=== PATIENT | female | born 1950 | race African-American/Black ===

== ENCOUNTER 2018-06-17 19:33 | Inpatient (IN) | payer OTHER, MEDICAID ==
[~2018-06-17] VITALS: Ht 165.1 cm; Wt 113.4 kg
[~2018-06-17 19:33] MED LIST: AMIT-188 GT; AMLO5TAB88 PO; ASPI-1079 PO; COR3 PO; LISI10TA5 PO
[2018-06-17] MEDS ORDERED: ALBUTEROL (0.083%) 2.5MG/3ML NEB HHN STA ×2 (19:59→22:18)
[2018-06-17] MEDS ORDERED: SODIUM CHLORIDE 0.9% 1,000 ML IV ONE (19:59)
[2018-06-17] MEDS ORDERED: IPRATROPIUM BROMIDE (0.02%) 0.5MG/2.5ML NEB HHN STA (19:59)
[2018-06-17] MEDS ORDERED: METHYLPREDNISOLONE SOD SUCC 125 MG/2 ML VIAL IV STA (19:59)
[2018-06-17] MEDS ORDERED: ASPIRIN 81MG TABLET PO ONE (20:00)
[2018-06-17] MEDS ORDERED: ONDANSETRON HCL 4MG/2ML INJ IV ONE (20:00)
[2018-06-17] MEDS ORDERED: ALBUTEROL (0.5%) 2.5MG/0.5ML NEB HHN ONE (20:19)
[2018-06-17 21:08] LABS: BASOPHILS % 0.9 % (0.0-2.0); EOSINOPHILS % 1.5 % (0.0-5.0); HEMATOCRIT. 37.4 % (36.0-48.0); HEMOGLOBIN. 12.5 g/dL (12.0-16.0); LYMPHOCYTES % 25.3 % (20.0-50.0); MEAN CORPUSCULAR HEMOGLOBIN 30.9 pg (28.0-32.0); MEAN CORPUSCULAR VOLUME 92.4 fL (81.0-99.0); MEAN PLATELET VOLUME 9.7 fl (7.4-10.4); MONOCYTES % 8.1 % (2.0-8.0); NEUTROPHILS % 64.2 % (40.0-76.0); PLATELET 250 x1000/uL (130-400); RED BLOOD CELL COUNT 4.04 mill/uL (4.2-5.4); RED CELL DISTRIBUTION WIDTH 14.4 % (11.6-14.6)
[2018-06-17 21:11] LABS: CHLORIDE 104 mEq/L (98-107)
[2018-06-17 21:14] LABS: INR 1.1; PARTIAL THROMBOPLASTIN TIME 26.6 sec (23.4-31.0); PROTHROMBIN TIME 10.7 sec (9.1-11.1)
[2018-06-17] MEDS ORDERED: SODIUM CHLORIDE 0.9% 1000ML BAG (SEPSIS BOLUS) IV ONE (22:00)
[2018-06-17] MEDS ORDERED: NITROGLYCERIN OINT 1GM/INCH UDPKT TD ONE (22:00)
[2018-06-17] MEDS ORDERED: METRONIDAZOLE 500 MG PREMIX 100 ML IV ONE (22:00)
[2018-06-17] MEDS ORDERED: LEVOFLOXACIN 750MG PREMIX 150 ML IV ONE (22:00)
[2018-06-17] MEDS ORDERED: FUROSEMIDE 40MG/4ML VIAL IV ONE (22:00)
[2018-06-17] MEDS ORDERED: NITROGLYCERIN 0.4MG TABLET SL SL PRN (22:45)
[2018-06-17] MEDS ORDERED: GUAIFENESIN 200MG/10ML SUGAR FREE UDC PO PRN (22:45)
[2018-06-17] MEDS ORDERED: DOCUSATE SODIUM 100MG CAPSULE PO PRN (22:45)
[2018-06-17] MEDS ORDERED: LEVOFLOXACIN 500MG PREMIX 100 ML IV SCH (22:45)
[2018-06-17] MEDS ORDERED: ONDANSETRON HCL 4MG/2ML INJ IV PRN (22:45)
[2018-06-17] MEDS ORDERED: ZOLPIDEM TARTRATE 5MG TABLET PO PRN (22:45)
[2018-06-17] MEDS ORDERED: MAGNESIUM/ALUMINUM HYDROXIDE/SIMETHICONE 30ML UDC PO PRN (22:45)
[2018-06-17] MEDS ORDERED: LORAZEPAM 0.5MG TABLET PO PRN (22:45)
[2018-06-17] MEDS ORDERED: IPRATROPIUM/ALBUTEROL 0.5-3(2.5)MG/3ML NEB INH PRN (22:45)
[2018-06-17] MEDS ORDERED: DEXTROSE 50% WATER 50ML SYRINGE IV PRN (22:45)
[2018-06-18] VITALS: BP 116/55
[2018-06-18] MEDS ORDERED: NA PHOS,M-B/NA PHOS,DI-BA ENEMA 118ML PR PRN (00:28)
[2018-06-18 00:30] VITALS: BP 116/55
[2018-06-18] MEDS ORDERED: LEVOFLOXACIN 500MG PREMIX 100 ML IV SCH (02:00)
[2018-06-18] MEDS ORDERED: CEFTRIAXONE 1 G PREMIX 50 ML IV SCH (03:00)
[2018-06-18 04:00] VITALS: BP 103/57
[2018-06-18] MEDS: METHYLPREDNISOLONE SOD SUCC 125 MG/2 ML VIAL IV SCH ×3 (06:04→22:05)
[2018-06-18] MEDS: BLOOD SUGAR DIAGNOSTIC STRIP TEST SCH ×4 (06:28→20:11)
[2018-06-18] MEDS: INSULIN LISPRO 100 UNITS/ML SUBCUT SCH ×4 (06:37→20:25)
[2018-06-18] MEDS ORDERED: ENOXAPARIN 40MG/0.4ML SYR SUBCUT SCH ×2 (09:00)
[2018-06-18] MEDS ORDERED: FAMOTIDINE 20MG TABLET PO SCH (09:00)
[2018-06-18] MEDS: GUAIFENESIN/DM 600MG/30MG ER TAB 12HR PO SCH ×2 (09:59→20:19)
[2018-06-18] MEDS: FAMOTIDINE 20MG TABLET PO SCH (09:59)
[2018-06-18] MEDS: ASCORBIC ACID 500 MG TABLET PO SCH ×2 (09:59→20:19)
[2018-06-18] MEDS: ZINC SULFATE 220 MG ( 50 ) CAPSULE PO SCH (09:59)
[2018-06-18] MEDS: ASPIRIN 325MG EC TABLET PO SCH (10:00)
[2018-06-18] MEDS ORDERED: INSULIN GLARGINE UD 100 UNITS/ML SYR SUBCUT SCH (10:00)
[2018-06-18 10:02] LABS: CREATINE KINASE 191 IU/L (26-192)
[2018-06-18 12:30] VITALS: BP 112/60
[2018-06-18 16:00] VITALS: BP 135/84
[2018-06-18 17:23] LABS: BASOPHILS % 0.1 % (0.0-2.0); HEMATOCRIT. 36.5 % (36.0-48.0); LYMPHOCYTES % 12.5 % (20.0-50.0); MEAN CORPUSCULAR HEMOGLOBIN 30.5 pg (28.0-32.0); MEAN CORPUSCULAR VOLUME 93.1 fL (81.0-99.0); MEAN PLATELET VOLUME 9.6 fl (7.4-10.4); MONOCYTES % 3.3 % (2.0-8.0); NEUTROPHILS % 84.1 % (40.0-76.0); PLATELET 262 x1000/uL (130-400); RED BLOOD CELL COUNT 3.92 mill/uL (4.2-5.4); RED CELL DISTRIBUTION WIDTH 14.5 % (11.6-14.6)
[2018-06-18 17:56] LABS: CHLORIDE 108 mEq/L (98-107)
[2018-06-18 18:06] LABS: CREATINE KINASE 229 IU/L (26-192)
[2018-06-18 18:09] LABS: CREATINE KINASE MB FRACTION 2.9 ng/mL (0.5-3.6)
[2018-06-18 19:34] VITALS: BP 148/81
[2018-06-18] MEDS: KETOROLAC 15MG/ML VIAL IV PRN (19:45)
[2018-06-18] MEDS: ENOXAPARIN 30MG/0.3ML SYR SUBCUT SCH (20:20)
[2018-06-18] MEDS: ACETAMINOPHEN 325MG TABLET PO PRN (22:07)
[2018-06-19] VITALS: BP 137/78
[2018-06-19] MEDS ORDERED: LEVOFLOXACIN 250MG PREMIX 50 ML IV SCH (02:00)
[2018-06-19] MEDS: CEFTRIAXONE 1 G PREMIX 50 ML IV SCH (03:28)
[2018-06-19] MEDS: ACETAMINOPHEN 325MG TABLET PO PRN (03:34)
[2018-06-19 04:00] VITALS: BP 155/90
[2018-06-19] MEDS: BLOOD SUGAR DIAGNOSTIC STRIP TEST SCH ×4 (06:28→20:41)
[2018-06-19] MEDS: METHYLPREDNISOLONE SOD SUCC 125 MG/2 ML VIAL IV SCH ×3 (06:28→22:13)
[2018-06-19] MEDS: INSULIN LISPRO 100 UNITS/ML SUBCUT SCH ×4 (06:49→20:39)
[2018-06-19] MEDS: IPRATROPIUM/ALBUTEROL 0.5-3(2.5)MG/3ML NEB HHN SCH ×4 (08:54→20:22)
[2018-06-19 09:00] VITALS: BP 161/78
[2018-06-19] MEDS: ASPIRIN 325MG EC TABLET PO SCH (09:00)
[2018-06-19] MEDS: ZINC SULFATE 220 MG ( 50 ) CAPSULE PO SCH (09:02)
[2018-06-19] MEDS: CLONIDINE 0.1MG TABLET PO PRN ×2 (09:02→20:37)
[2018-06-19] MEDS: ASCORBIC ACID 500 MG TABLET PO SCH ×2 (09:02→20:36)
[2018-06-19] MEDS: FAMOTIDINE 20MG TABLET PO SCH ×2 (09:02→20:36)
[2018-06-19] MEDS: GUAIFENESIN/DM 600MG/30MG ER TAB 12HR PO SCH ×2 (09:02→20:36)
[2018-06-19] MEDS: ENOXAPARIN 30MG/0.3ML SYR SUBCUT SCH ×2 (09:03→20:37)
[2018-06-19] MEDS: INSULIN GLARGINE UD 100 UNITS/ML SYR SUBCUT SCH (10:32)
[2018-06-19 12:02] VITALS: BP 152/78
[2018-06-19 16:00] VITALS: BP 140/75
[2018-06-19] MEDS: KETOROLAC 15MG/ML VIAL IV PRN (18:57)
[2018-06-19 20:00] VITALS: BP 151/90
[2018-06-19] MEDS: LEVOFLOXACIN 500MG PREMIX 100 ML IV SCH (22:11)
[2018-06-20] VITALS: BP 147/85
[2018-06-20] MEDS: IPRATROPIUM/ALBUTEROL 0.5-3(2.5)MG/3ML NEB HHN SCH ×6 (00:27→20:19)
[2018-06-20] MEDS: ACETAMINOPHEN 325MG TABLET PO PRN (02:18)
[2018-06-20] MEDS: CEFTRIAXONE 1 G PREMIX 50 ML IV SCH (03:17)
[2018-06-20 04:00] VITALS: BP 138/79
[2018-06-20] MEDS: BLOOD SUGAR DIAGNOSTIC STRIP TEST SCH ×4 (06:03→20:59)
[2018-06-20] MEDS: METHYLPREDNISOLONE SOD SUCC 125 MG/2 ML VIAL IV SCH ×3 (06:18→21:11)
[2018-06-20] MEDS: INSULIN LISPRO 100 UNITS/ML SUBCUT SCH ×4 (06:23→21:02)
[2018-06-20 08:00] VITALS: BP 152/89
[2018-06-20] MEDS: ENOXAPARIN 30MG/0.3ML SYR SUBCUT SCH ×2 (09:33→20:58)
[2018-06-20] MEDS: ZINC SULFATE 220 MG ( 50 ) CAPSULE PO SCH (09:33)
[2018-06-20] MEDS: ASPIRIN 325MG EC TABLET PO SCH (09:33)
[2018-06-20] MEDS: FAMOTIDINE 20MG TABLET PO SCH ×2 (09:33→20:59)
[2018-06-20] MEDS: ASCORBIC ACID 500 MG TABLET PO SCH ×2 (09:34→21:12)
[2018-06-20] MEDS: GUAIFENESIN/DM 600MG/30MG ER TAB 12HR PO SCH ×2 (09:34→20:59)
[2018-06-20] MEDS: KETOROLAC 15MG/ML VIAL IV PRN ×3 (09:34→22:46)
[2018-06-20] MEDS: INSULIN GLARGINE UD 100 UNITS/ML SYR SUBCUT SCH (09:37)
[2018-06-20 12:00] VITALS: BP 169/68
[2018-06-20] MEDS: CLONIDINE 0.1MG TABLET PO PRN (13:20)
[2018-06-20 16:30] VITALS: BP 147/86
[2018-06-20 20:00] VITALS: BP 141/94
[2018-06-20] MEDS: LEVOFLOXACIN 500MG PREMIX 100 ML IV SCH (20:59)
[2018-06-21] VITALS: BP 169/95
[2018-06-21] MEDS: IPRATROPIUM/ALBUTEROL 0.5-3(2.5)MG/3ML NEB HHN SCH ×4 (00:14→11:58)
[2018-06-21] MEDS: CLONIDINE 0.1MG TABLET PO PRN ×2 (00:15→09:02)
[2018-06-21] MEDS: CEFTRIAXONE 1 G PREMIX 50 ML IV SCH (03:47)
[2018-06-21 04:00] VITALS: BP 150/72
[2018-06-21] MEDS: METHYLPREDNISOLONE SOD SUCC 125 MG/2 ML VIAL IV SCH (06:24)
[2018-06-21] MEDS: BLOOD SUGAR DIAGNOSTIC STRIP TEST SCH ×2 (06:24→11:53)
[2018-06-21] MEDS: KETOROLAC 15MG/ML VIAL IV PRN (06:24)
[2018-06-21] MEDS: INSULIN LISPRO 100 UNITS/ML SUBCUT SCH ×2 (06:40→12:50)
[2018-06-21 08:00] VITALS: BP 177/84
[2018-06-21] MEDS: GUAIFENESIN/DM 600MG/30MG ER TAB 12HR PO SCH (08:55)
[2018-06-21] MEDS: ASCORBIC ACID 500 MG TABLET PO SCH (08:55)
[2018-06-21] MEDS: ZINC SULFATE 220 MG ( 50 ) CAPSULE PO SCH (08:55)
[2018-06-21] MEDS: FAMOTIDINE 20MG TABLET PO SCH (08:55)
[2018-06-21] MEDS: ENOXAPARIN 30MG/0.3ML SYR SUBCUT SCH (08:56)
[2018-06-21] MEDS: ASPIRIN 325MG EC TABLET PO SCH (09:02)
[2018-06-21] MEDS: INSULIN GLARGINE UD 100 UNITS/ML SYR SUBCUT SCH (09:03)
[2018-06-21 10:06] LABS: BG BASE EXCESS -5.4 mmol/L (-2.0-2.0); BG CARBOXYHEMOGLOBIN 0.4 % (0.5-1.5); BG DEOXYHEMOGLOBIN 6.1 % (0.0-5.0); BG FRACTION INSPIRED OXYGEN 21; BG HCO3 ACT 18.6 mmol/L (22.0-26.0); BG METHEMOGLOBIN 0.1 % (0.0-1.5); BG OXYGEN SATURATION 93.9 % (92.0-98.5); BG OXYHEMOGLOBIN 93.4 % (94.0-97.0); BG PCO2 31.8 mmHg (35.0-45.0); BG PH 7.386 (7.350-7.450); BG SAMPLE SITE RIGHT RADIAL; BG TOTAL HEMOGLOBIN 12.1 g/dL (12.0-18.0); BG VENT MODE ROOM AIR
[2018-06-21 11:26] VITALS: BP 140/76
[2018-06-21 12:00] VITALS: BP 140/74
== END 2018-06-21 14:30 | disposition home or self-care (01) | DRG 682 ==
LOC: ER 19:51 → 8WST 22:20 → EDBEDREQTM 22:23 → EDBEDREQ 22:23 → SUPCPDRO 22:36 → ENRESERV 23:03
PROVIDERS: ADMIT Internal Medicine; ATTEND Internal Medicine
DX: N17.0 Acute kidney failure with tubular necrosis (principal); J96.00 Acute respiratory failure, unspecified whether with hypoxia or hypercapnia; J44.1 Chronic obstructive pulmonary disease with (acute) exacerbation; E44.1 Mild protein-calorie malnutrition; Z68.41 Body mass index [BMI] 40.0-44.9, adult; E11.9 Type 2 diabetes mellitus without complications; E66.9 Obesity, unspecified; E78.00 Pure hypercholesterolemia, unspecified; I11.0 Hypertensive heart disease with heart failure; I50.9 Heart failure, unspecified; Z79.4 Long term (current) use of insulin; Z90.49 Acquired absence of other specified parts of digestive tract; Z79.82 Long term (current) use of aspirin; Z79.899 Other long term (current) drug therapy
CPT/HCPCS: 36415; 36600; 71045; 80061; 82375; 82550; 82553; 82805; 82962; 83036; 83605; 83880; 84484; 93005; 93306; 93970; 94640; 96361; 96365; 96375; 99291; J0696; J1650; J1815; J1885; J1956; J2405; J2930; J3490; J7030; J7040; J7611; J7620